=== PATIENT | male | born 1980 | race Caucasian/White ===

== ENCOUNTER 2017-07-30 20:35 | Emergency (ER) | payer SELFPAY ==
[~2017-07-30 20:35] MED LIST: GABA600T PO; PANT40IN3 PO
[2017-07-30 20:37] VITALS: BP 128/86; PULSE 75; RESP 16; O2SAT 95
[2017-07-30 23:04] VITALS: BP 133/80; PULSE 68; RESP 18; O2SAT 100
[2017-07-30] MEDS ORDERED: GABA600T PO (23:10)
[2017-07-30] MEDS ORDERED: [UNRECOGNIZED DRUG - OTHER] PO (23:10)
[2017-07-30] MEDS ORDERED: SODIUM CHLORIDE 0.9% FLUSH 10 ML FLUSH IV FLUSH PRN (23:15)
[2017-07-30] MEDS ORDERED: SODIUM CHLOR 0.9% 1000 ML INJ 1,000 ML IV ONE (23:15)
[2017-07-30] MEDS ORDERED: ONDANSETRON HCL 4 MG/2 ML VIAL IV PUSH ONE (23:15)
--- NOTE | 2017-07-30 23:20 | PD ---
HPI Chief Complaint: Abdominal Pain Time Seen by Provider: 23:15 Travel History International Travel<30 days: No Contact w/Intl Traveler<30days: No Traveled to known affect area: No History of Present Illness HPI 37-year-old male presents to the emergency department by nonemergent transport for one hour of abdominal pain. Patient is currently involved with a detox program and has been off of all substance use 2 days. Patient complains of nausea without vomiting. Patient states she is afraid that his liver is failing. Patient denies chest pain or shortness of breath. Patient states he used multiple substances in the past including methamphetamine and narcotics. Patient previously had been on prescription Dilaudid for chronic back pain. Patient also has history of bipolar disorder and schizoaffective disorder. Patient is been reviewed receiving his mental health medications while at the detox program. Patient denies other concerns or complaints. PFSH Past Medical History Narrative Medical Hepatitis C GERD cholecystitis polysubstance abuse bipolar disorder and schizoaffective disorder; vasectomy; tobacco use; nursing notes reviewed Cancer: No Cardiovascular Problems: No Diminished Hearing: No Endocrine: No Gastrointestinal Disorders: Yes (CHOLYCYSTITIS) Genitourinary: Yes Hepatitis: Yes (C) Immune Disorder: No Implanted Vascular Access Dvce: No Musculoskeletal: Yes (Chronic back pain ) Neurologic: No Psychiatric: Yes (Bipolar) Reproductive: No Respiratory: Yes Immunizations Current: Yes Social History Alcohol Use: No Tobacco Use: Yes (1 PPD ) Substance Use: No Allergies-Medications (Allergen,Severity, Reaction): Coded Allergies: No Known Allergies (Unverified , 07/30/17) Reported Meds & Prescriptions Reported Meds & Active Scripts Active Reported [mental health meds] 1 Tab PO DAILY Gabapentin 600 Mg Tab 600 Mg PO TID Review of Systems Except as stated in HPI: all other systems reviewed are Neg Physical Exam Narrative GENERAL: Well-developed well-nourished male in no acute distress no respiratory distress SKIN: Warm and dry. HEAD: Normocephalic. EYES: No scleral icterus. No injection or drainage. NECK: Supple, trachea midline. No JVD or lymphadenopathy. CARDIOVASCULAR: Regular rate and rhythm without murmurs, gallops, or rubs. RESPIRATORY: Breath sounds equal bilaterally. No accessory muscle use. GASTROINTESTINAL: Abdomen soft, diffusely tender without guarding or rebound, nondistended. MUSCULOSKELETAL: No cyanosis, or edema. BACK: Nontender without obvious deformity. No CVA tenderness. Data Data Last Documented VS Vital Signs Date Time Temp Pulse Resp B/P (MAP) Pulse Ox O2 Delivery O2 Flow Rate FiO2 07/31/17 03:14 84 18 128/80 (96) 97 Room Air Orders Orders Complete Blood Count With Diff (07/30/17 23:15) Comprehensive Metabolic Panel (07/30/17 23:15) Lipase (07/30/17 23:15) Urinalysis - C+S If Indicated (07/30/17 23:15) Iv Access Insert/Monitor (07/30/17 23:15) Ecg Monitoring (07/30/17 23:15) Oximetry (07/30/17 23:15) Sodium Chloride 0.9% Flush (Ns Flush) (07/30/17 23:15) Electrocardiogram (07/30/17 23:15) Chest, Single Ap (07/30/17 23:15) Drug Screen, Random Urine (07/30/17 23:15) Ondansetron Inj (Zofran Inj) (07/30/17 23:15) Sodium Chlor 0.9% 1000 Ml Inj (Ns 1000 M (07/30/17 23:15) Ct Abd/Pel W Iv Contrast(Rout) (07/31/17 ) Magnesium (Mg) (07/31/17 00:55) Iohexol 350 Inj (Omnipaque 350 Inj) (07/31/17 01:12) Sodium Chlor 0.9% 1000 Ml Inj (Ns 1000 M (07/31/17 03:00) Labs Laboratory Tests Test 07/30/17 23:20 07/31/17 03:18 White Blood Count 12.5 TH/MM3 Red Blood Count 5.73 MIL/MM3 Hemoglobin 16.8 GM/DL Hematocrit 50.3 % Mean Corpuscular Volume 87.8 FL Mean Corpuscular Hemoglobin 29.3 PG Mean Corpuscular Hemoglobin Concent 33.4 % Red Cell Distribution Width 12.5 % Platelet Count 264 TH/MM3 Mean Platelet Volume 7.2 FL Neutrophils (%) (Auto) 81.3 % Lymphocytes (%) (Auto) 11.7 % Monocytes (%) (Auto) 6.3 % Eosinophils (%) (Auto) 0.5 % Basophils (%) (Auto) 0.2 % Neutrophils # (Auto) 10.2 TH/MM3 Lymphocytes # (Auto) 1.5 TH/MM3 Monocytes # (Auto) 0.8 TH/MM3 Eosinophils # (Auto) 0.1 TH/MM3 Basophils # (Auto) 0.0 TH/MM3 CBC Comment DIFF FINAL Differential Comment Blood Urea Nitrogen 16 MG/DL Creatinine 1.44 MG/DL Random Glucose 123 MG/DL Total Protein 9.1 GM/DL Albumin 5.0 GM/DL Calcium Level 9.3 MG/DL Alkaline Phosphatase 100 U/L Aspartate Amino Transf (AST/SGOT) 39 U/L Alanine Aminotransferase (ALT/SGPT) 73 U/L Total Bilirubin 1.9 MG/DL Sodium Level 137 MEQ/L Potassium Level 4.0 MEQ/L Chloride Level 102 MEQ/L Carbon Dioxide Level 26.2 MEQ/L Anion Gap 9 MEQ/L Estimat Glomerular Filtration Rate 55 ML/MIN Magnesium Level 2.5 MG/DL Lipase 72 U/L Urine Color YELLOW Urine Turbidity CLEAR Urine pH 6.0 Urine Specific [place] GREATER THAN 1.050 Urine Protein 30 mg/dL Urine Glucose (UA) NEG mg/dL Urine Ketones 40 mg/dL Urine Occult Blood NEG Urine Nitrite NEG Urine Bilirubin NEG Urine Urobilinogen 4.0 MG/DL Urine Leukocyte Esterase NEG Urine RBC 3 /hpf Urine WBC 2 /hpf Urine Squamous Epithelial Cells <1 /hpf Urine Mucus FEW /lpf Microscopic Urinalysis Comment CULT NOT INDICATED Urine Opiates Screen POS Urine Barbiturates Screen NEG Urine Amphetamines Screen POS Urine Benzodiazepines Screen NEG Urine Cocaine Screen POS Urine Cannabinoids Screen NEG MDM Medical Decision Making Medical Screen Exam Complete: Yes Emergency Medical Condition: Yes Medical Record Reviewed: Yes Interpretation(s) Urinalysis: Specific gravity greater than 1.035 Urine drug screen positive for amphetamines cocaine and opiates Last Impressions Abdomen/Pelvis CT 07/31/17 0000 Signed Impressions: Service Date/Time: Monday, July 31, 2017 01:02 - CONCLUSION: 1. No acute findings within the abdomen and pelvis. 2. Mild hepatosplenomegaly. Liver lesion measuring 1.5 cm stable in size since 2016 likely hemangioma. Josué Flores MD Chest X-Ray 07/30/17 2315 Signed Impressions: Service Date/Time: Sunday, July 30, 2017 23:33 - CONCLUSION: No acute disease. Josué Flores MD CBC & BMP Diagram 07/30/17 23:20 Total Protein 9.1 H, Albumin 5.0, Calcium Level 9.3, Alkaline Phosphatase 100, Aspartate Amino Transf (AST/SGOT) 39 H, Alanine Aminotransferase (ALT/SGPT) 73, Total Bilirubin 1.9 H Vital Signs Date Time Temp Pulse Resp B/P (MAP) Pulse Ox O2 Delivery O2 Flow Rate FiO2 07/31/17 03:14 84 18 128/80 (96) 97 Room Air 07/31/17 02:06 55 18 132/86 (101) 97 Room Air 07/31/17 00:52 77 18 121/72 (88) 99 Room Air 07/31/17 00:02 60 18 115/79 (91) 100 Room Air 07/30/17 23:04 68 18 133/80 (97) 100 Room Air 07/30/17 20:37 75 16 128/86 (100) 95 Room Air Differential Diagnosis Abdominal pain, polysubstance withdrawal, electrolyte disturbance, hepatitis, pancreatitis, gastritis, peptic ulcer disease, colitis, bowel obstruction, dehydration Narrative Course Patient placed on monitor IV access obtained specimens collected and sent for resulting patient bolused normal saline 1 L and administer Zofran 4 mg IV Patient resting comfortably voicing no concerns or complaints Patient sleeping but easily awakened to voice/name Patient receiving additional bolus of normal saline as still unable to produce urine Urine specimen collected and sent for resulting Patient identified to have elevated specific gravity, mild renal insufficiency, and tox screen positive for cocaine and amphetamines along with opiates; CT abdomen and pelvis reveals no acute abnormality Patient is stable for outpatient management and is encouraged to return to his detox program Diagnosis Primary Impression: Abdominal pain Additional Impressions: Polysubstance abuse Dehydration Referrals: Primary Care Physician call for appointment Patient Instructions: General Instructions Additional Instructions: Increase fluid hydration Return to your detox program Follow-up with your primary care provider as needed Return to the emergency for free concerns or change in condition Disposition: 01 DISCHARGE HOME Condition: Stable Bianca Ramos MD Jul 30, 2017 23:20
[2017-07-30 23:38] LABS: AUTOMATED NEUTROPHIL # 10.2 TH/MM3 (1.8-7.7); BASOPHIL % 0.2 % (0.0-2.0); EOSINOPHIL # 0.1 TH/MM3 (0-0.4); EOSINOPHIL % 0.5 % (0.0-4.0); HEMATOCRIT 50.3 % (39.0-51.0); HEMO FLAGS DIFF FINAL; LYMPH % 11.7 % (9.0-44.0); LYMPHOCYTE # 1.5 TH/MM3 (1.0-4.8); MEAN CELL VOLUME 87.8 FL (80.0-100.0); MEAN CORPUSCULAR HEMOGLOBIN 29.3 PG (27.0-34.0); MEAN CORPUSCULAR HGB CONC 33.4 % (32.0-36.0); MONO % 6.3 % (0.0-8.0); NEUT % 81.3 % (16.0-70.0); PLATELET COUNT 264 TH/MM3 (150-450); RED BLOOD COUNT 5.73 MIL/MM3 (4.50-5.90); RED CELL DISTRIBUTION WIDTH 12.5 % (11.6-17.2); WHITE BLOOD COUNT 12.5 TH/MM3 (4.0-11.0)
--- NOTE | 2017-07-30 23:49 | RADRPT ---
EXAM DATE/TIME: 07/30/2017 23:33 [facility] COMPARISON: No previous studies available for comparison. INDICATIONS : Chest pain with sweating. MEDICAL HISTORY : None. SURGICAL HISTORY : None. ENCOUNTER: Initial ACUITY: 1 day PAIN SCORE: 8/10 LOCATION: Bilateral chest FINDINGS: A single view of the chest demonstrates the lungs to be symmetrically aerated without evidence of mas s, infiltrate or effusion. The cardiomediastinal contours are unremarkable. Osseous structures are intact. CONCLUSION: No acute disease. Josué Flores MD on July 30, 2017 at 23:47 Board Certified Radiologist. This report was verified electronically.
[2017-07-31 00:02] VITALS: BP 115/79; PULSE 60; RESP 18; O2SAT 100
[2017-07-31 00:10] LABS: ANION GAP 9 MEQ/L (5-15); AST (GOT) 39 U/L (15-37); BICARBONATE 26.2 MEQ/L (21.0-32.0); BLOOD UREA NITROGEN 16 MG/DL (7-18); CHLORIDE 102 MEQ/L (98-107); GLOMERULAR FILTRATION RATE 55 ML/MIN (>89); SODIUM (NA) 137 MEQ/L (136-145)
[2017-07-31 00:11] LABS: ALT (GPT) 73 U/L (12-78)
[2017-07-31 00:13] LABS: ALKALINE PHOSPHATASE 100 U/L (45-117); TOTAL BILIRUBIN ADULT 1.9 MG/DL (0.2-1.0)
[2017-07-31 00:52] VITALS: BP 121/72; PULSE 77; RESP 18; O2SAT 99
[2017-07-31] MEDS ORDERED: IOHEXOL 350 MG/ML 10 ML VIAL (for RAD DIAG) IVCONTRAST ONE (01:12)
--- NOTE | 2017-07-31 01:23 | RADRPT ---
EXAM DATE/TIME: 07/31/2017 01:02 [facility] COMPARISON: CT ABDOMEN & PELVIS W CONTRAST, September 11, 2016, 11:22. MRCP W & W/O CONTRAST, September 14, 2016, 18 :31. INDICATIONS : Abdominal pain. IV CONTRAST: 99 cc Omnipaque 350 (iohexol) IV ORAL CONTRAST: No oral contrast ingested. RADIATION DOSE: 10.01 CTDIvol (mGy) MEDICAL HISTORY : Hepatitis C. Gastroesophageal reflux disease. Cholecystitis SURGICAL HISTORY : None. ENCOUNTER: Initial ACUITY: 1 day PAIN SCALE: 4/10 LOCATION: Left abdomen TECHNIQUE: Volumetric scanning of the abdomen and pelvis was performed. Using automated exposure control and ad justment of the mA and/or kV according to patient size, radiation dose was kept as low as reasonably achievable to obtain optimal diagnostic quality images. DICOM format image data is available electro nically for review and comparison. FINDINGS: There is a 1.5 cm lesion posterior right lobe liver previously evaluated and thought to represent aty pical hemangioma. No new liver lesions identified. Mild fatty liver. Liver is mildly enlarged 19.8 cm and the spleen is enlarged to 16.5 cm in length. Lung bases clear. No acute findings in the spleen, adrenals, kidneys or pancreas. No calcified gallst ones. No free fluid. No bowel obstruction. No adenopathy. CONCLUSION: 1. No acute findings within the abdomen and pelvis. 2. Mild hepatosplenomegaly. Liver lesion measuring 1.5 cm stable in size since 2016 likely hemangioma . Josué Flores MD on July 31, 2017 at 1:15 Board Certified Radiologist. This report was verified electronically.
[2017-07-31 02:06] VITALS: BP 132/86; PULSE 55; RESP 18; O2SAT 97
[2017-07-31] MEDS ORDERED: SODIUM CHLOR 0.9% 1000 ML INJ 1,000 ML IV ONE (03:00)
[2017-07-31 03:14] VITALS: BP 128/80; PULSE 84; RESP 18; O2SAT 97
[2017-07-31 03:41] LABS: BLOOD, URINE NEG (NEG); COMMENT (UR) CULT NOT INDICATED; CULTURE IF INDICATED CULT NOT INDICATED; GLUCOSE,URINE NEG (NEG); KETONE, URINE 40 mg/dL (NEG); MUCUS URINE FEW /lpf (OCC); NITRITE,URINE NEG (NEG); SQUAMOUS EPITHELIAL CELL URINE <1 /hpf (0-5); URINE COLOR YELLOW (YELLW/STRAW)
[2017-07-31 05:48] VITALS: BP 120/74
--- NOTE | 2017-07-31 09:21 | EKG ---
Date Performed: 07/30/2017 Time Performed: 23:25:59 PTAGE: 37 years EKG: Sinus rhythm PROLONGED QT INTERVAL ABNORMAL ECG NO PREVIOUS TRACING DOCTOR: Alexis Gillette Interpretating Date/Time 07/31/2017 09:20:00
== END 2017-07-31 06:20 | disposition home or self-care (01) ==
LOC: NEPC 20:35
DX: R10.9 Unspecified abdominal pain (principal); F19.10 Other psychoactive substance abuse, uncomplicated; F17.200 Nicotine dependence, unspecified, uncomplicated; E86.0 Dehydration; Z79.899 Other long term (current) drug therapy
CPT/HCPCS: 71010; 74177; 80053; 80307; 81001; 83690; 83735; 85025; 93005; 96361; 96374; 99285; J2405; J7030; Q9967